=== PATIENT | female | born 1990 | race African-American/Black ===

== ENCOUNTER 2017-02-25 06:47 | Emergency (ER) | payer OTHER ==
[~2017-02-25] VITALS: Ht 172.7 cm; Wt 70.0 kg
[2017-02-25] MEDS ORDERED: IBUPROFEN 800 MG TAB PO ONE (09:15)
[2017-02-25] MEDS ORDERED: METHOCARBAMOL 500 MG TAB PO ONE (09:15)
--- NOTE | 2017-02-25 10:09 | REP ---
CERVICAL SPINE SERIES: Seven views of the cervical spine performed. There is no acute fracture or dislocation seen. The vertebral bodies are normal in height and are well aligned with normal cervical lordosis. There is no prevertebral soft tissue swelling. The disc spaces are well preserved. There is no radiographic evidence of neural foraminal narrowing. IMPRESSION: No acute fracture or dislocation visualized. Signed by Paco Velez MD 02/25/2017 08:17 P
[2017-02-25] MEDS ORDERED: ROBA500T PO (10:27)
[2017-02-25] MEDS ORDERED: IBUP80TA PO (10:27)
[2017-02-25 10:35] VITALS: BP 114/55
== END 2017-02-25 10:38 | disposition home or self-care (01) ==
LOC: M ED 07:49
DX: S16.1XXA Strain of muscle, fascia and tendon at neck level, initial encounter (principal); V43.52XA Car driver injured in collision with other type car in traffic accident, initial encounter; Y92.410 Unspecified street and highway as the place of occurrence of the external cause; Y93.9 Activity, unspecified; Y99.8 Other external cause status

== ENCOUNTER → 2017-03-20 | Outpatient (REF) | payer OTHER ==
[~2017-03-20] MED LIST: IBUP80TA PO; ROBA500T PO
== END ==
LOC: M SFHCLERA 16:38
PROVIDERS: ATTEND Nurse Practitioner Family
DX: N93.9 Abnormal uterine and vaginal bleeding, unspecified (principal)

== ENCOUNTER 2017-10-13 19:09 | Emergency (ER) | payer OTHER ==
[2017-10-13] MEDS ORDERED: ACETAMINOPHEN 325 MG TAB As Ordered (20:55)
[2017-10-13] MEDS: ACETAMINOPHEN TAB 650MG DOSE (2X325MG) PO (21:00)
[2017-10-13 21:14] LABS: INFLUENZA A AMPLIFICATION POSITIVE (NEGATIVE); INFLUENZA B AMPLIFICATION NEGATIVE (NEGATIVE)
== END 2017-10-13 21:42 | disposition home or self-care (01) ==
LOC: M ED 19:09
DX: J09.X2 Influenza due to identified novel influenza A virus with other respiratory manifestations (principal)
CPT/HCPCS: 71046

== ENCOUNTER 2018-05-05 20:12 | Emergency (ER) | payer OTHER ==
[2018-05-05 21:38] LABS: MEAN CORPUSCULAR HEMOGLOBIN 32.4 pg (27.0-33.0); MEAN CORPUSCULAR HGB CONC 34.2 g/dl (32.0-36.5); MEAN CORPUSCULAR VOLUME 94.8 fl (80.0-96.0); PLATELET COUNT, AUTOMATED 238 10^3/uL (150-450); RED BLOOD COUNT 4.01 10^6/uL (4.00-5.40); RED CELL DISTRIBUTION WIDTH 11.9 % (11.5-14.5); WHITE BLOOD COUNT 6.6 10^3/uL (4.0-10.0)
[2018-05-05 21:45] LABS: CONTROL LINE HCG INT CTR LINE PRESENT; HCG, SERUM QUALITATIVE NEGATIVE (NEGATIVE)
[2018-05-05 21:49] LABS: ANION GAP 7 MEQ/L (8-16); BLOOD UREA NITROGEN 12 MG/DL (7-18); CALCIUM LEVEL 8.8 MG/DL (8.5-10.1); CARBON DIOXIDE LEVEL 27 MEQ/L (21-32); CHLORIDE LEVEL 106 MEQ/L (98-107); CREATININE FOR GFR 0.84 MG/DL (0.55-1.30); GLOMERULAR FILTRATION RATE > 60.0 (>60); GLUCOSE, FASTING 85 MG/DL (70-100); POTASSIUM SERUM 3.8 MEQ/L (3.5-5.1); SODIUM LEVEL 140 MEQ/L (136-145)
[2018-05-05 21:50] LABS: INR 1.13; PROTHROMBIN TIME 14.6 SECONDS (12.1-14.4)
== END 2018-05-05 23:40 | disposition home or self-care (01) ==
LOC: M ED 20:12
DX: N93.8 Other specified abnormal uterine and vaginal bleeding (principal); Z79.899 Other long term (current) drug therapy
CPT/HCPCS: 76856

== ENCOUNTER 2018-11-14 11:53 | Day surgery (SDC) | payer OTHER ==
[~2018-11-14] VITALS: Ht 172.7 cm; Wt 78.5 kg
[~2018-11-14 11:53] MED LIST changes: +CAPS0.022 TOP; +DULO1CAP2 PO; +NS 1,000 ML IV ONE
[2018-11-14] MEDS ORDERED: PROPOFOL 200 MG/20 ML VIAL As Ordered ONE (13:17)
[2018-11-14] MEDS ORDERED: PROPOFOL 500 MG/50 ML VIAL As Ordered ONE (13:17)
[2018-11-14] MEDS ORDERED: LIDOCAINE 2% INJ 100 MG/5 ML SDV (FOR ANES.) As Ordered ONE (13:17)
[2018-11-14] MEDS ORDERED: fentaNYL 100 MCG/2 ML INJECTION (J3010) As Ordered ONE (13:17)
--- NOTE | 2018-11-14 13:28 | ROOR ---
Patient Name: Atilio Camara Procedure Date: 11/14/2018 1:15 PM Date of : 1990 Age: 28 Room: [facility] Gender: Female Note Status: Finalized Procedure: Upper Endoscopy + Biopsies Indications: Heartburn, Exclusion of Ford's esophagus Providers: Harry Escamilla MD Referring MD: PETER GREEN MD Requesting Provider: Medicines: Monitored Anesthesia Care Complications: No immediate complications. Procedure: Pre-Anesthesia Assessment: - The heart rate, respiratory rate, oxygen saturations, blood pressure, adequacy of pulmonary ventilation, and response to care were monitored throughout the procedure. The Endoscope was introduced through the mouth, and advanced to the second part of duodenum. The upper GI endoscopy was accomplished without difficulty. The patient tolerated the procedure well. Findings: The Z-line was regular and was found 40 cm from the incisors. Multiple biopsies were obtained with cold forceps for evaluation to rule out Ford's Esophagus randomly at the gastroesophageal junction. No other significant abnormalities were identified in a careful examination of the stomach. The exam of the duodenum was otherwise normal. Impression: - Z-line regular, 40 cm from the incisors. - Multiple biopsies were obtained at the gastroesophageal junction. - The examination was otherwise normal. Recommendation: - Patient has a contact number available for emergencies. The signs and symptoms of potential delayed complications were discussed with the patient. Return to normal activities tomorrow. Written discharge instructions were provided to the patient. - High fiber diet. - Discharge patient to home. - Continue present medications. - Follow an antireflux regimen. - Await pathology results. - Telephone GI clinic for pathology results in 1 week. - Return to referring physician. - The findings and recommendations were discussed with the patient's family. Harry Escamilla MD Harry Escamilla MD 11/14/2018 1:28:25 PM This report has been signed electronically. Number of Addenda: 0 Note Initiated On: 11/14/2018 1:15 PM Estimated Blood Loss: Estimated blood loss: none.
--- NOTE | 2018-11-14 13:42 | ROOR ---
Patient Name: Atilio Camara Procedure Date: 11/14/2018 1:15 PM Date of : 1990 Age: 28 Room: [facility] Gender: Female Note Status: Finalized Procedure: Total Colonoscopy to Cecum Indications: Change in bowel habits, Chronic idiopathic constipation Providers: Harry Escamilla MD Referring MD: PETER GREEN MD Requesting Provider: Medicines: Monitored Anesthesia Care Complications: No immediate complications. Procedure: Pre-Anesthesia Assessment: - The heart rate, respiratory rate, oxygen saturations, blood pressure, adequacy of pulmonary ventilation, and response to care were monitored throughout the procedure. The Colonoscope was introduced through the anus and advanced to the cecum, identified by appendiceal orifice and ileocecal valve. The colonoscopy was performed without difficulty. The patient tolerated the procedure well. The quality of the bowel preparation was excellent. Findings: The perianal and digital rectal examinations were normal. No other significant abnormalities were identified in a careful examination of the remainder of the colon. The exam was otherwise without abnormality on direct and retroflexion views. Impression: - The examination was otherwise normal on direct and retroflexion views. - No specimens collected. - The exam was otherwise normal to the cecum. Recommendation: - Patient has a contact number available for emergencies. The signs and symptoms of potential delayed complications were discussed with the patient. Return to normal activities tomorrow. Written discharge instructions were provided to the patient. - High fiber diet. - Discharge patient to home. - Continue present medications. - Repeat colonoscopy at age 49 for screening purposes. - Return to referring physician. - The findings and recommendations were discussed with the patient's family. Harry Escamilla MD Harry Escamilla MD 11/14/2018 1:41:44 PM This report has been signed electronically. Number of Addenda: 0 Note Initiated On: 11/14/2018 1:15 PM Estimated Blood Loss: Estimated blood loss: none.
[2018-11-14 14:15] VITALS: BP 112/65
== END 2018-11-14 14:17 | disposition home or self-care (01) ==
LOC: M OPP 11:53
PROVIDERS: ATTEND Internal Medicine Gastroenterology
DX: K59.04 Chronic idiopathic constipation (principal); R12 Heartburn
CPT/HCPCS: 43239; 45378; 88305; J3010